=== PATIENT | female | born 1990 ===

== ENCOUNTER 2017-03-04 13:54 | Emergency (ER) | payer OTHER ==
[2017-03-04 13:54] VITALS: BMI 29.2
[2017-03-04 14:10] VITALS: BP 130/72; PULSE 95; RESP 18; TEMP 97; O2SAT 100
--- NOTE | 2017-03-04 14:59 | ED PDOC ---
HPI: Eye Injury/Pain Time Seen by Provider: 03/04/17 14:33 Chief Complaint (Nursing): Eye Problem Chief Complaint (Provider): Right eye pain, redness History Per: Patient History/Exam Limitations: no limitations Onset/Duration Of Symptoms: Days Current Symptoms Are (Timing): Still Present Severity: Moderate Pain Scale Rating Of: 5 Quality: Burning Associated Symptoms: FB Sensation, Other (Watery) Past Medical History Reviewed: Historical Data, Nursing Documentation, Vital Signs Vital Signs: Last Vital Signs Temp 97 F L 03/04/17 14:06 Pulse 95 H 03/04/17 14:06 Resp 18 03/04/17 14:06 BP 130/72 03/04/17 14:06 Pulse Ox 100 03/04/17 14:06 - Medical History PMH: Anxiety Denies: Chronic Kidney Disease - Surgical History Surgical History: No Surg Hx - Family History Family History: States: No Known Family Hx - Living Arrangements Living Arrangements: With Family - Social History Current smoker - smoking cessation education provided: No Alcohol: Occasional Drugs: Denies - Home Medications Home Medications: Ambulatory Orders Medication Instructions Recorded Vit No.128/Iron/FA 1 tab PO DAILY 01/16/16 [ Vitamin] Ibuprofen [Motrin Tab] 800 mg PO TID #0 tab 01/18/16 Gentamicin 0.1% 0.1 / TP BID #1 tube 03/04/17 - Allergies Allergies/Adverse Reactions: Allergies Allergy/AdvReac Type Severity Reaction Status Date / Time promethazine AdvReac DIZZINESS Verified 10/02/15 12:42 Review of Systems ROS Statement: Except As Marked, All Systems Reviewed And Found Negative Constitutional: Positive for: Sweats. Negative for: Fever Eyes: Positive for: Redness Skin: Positive for: Other Physical Exam - Reviewed Nursing Documentation Reviewed: Yes Vital Signs Reviewed: Yes - Physical Exam Appears: Positive for: Well, Non-toxic, No Acute Distress Head Exam: Positive for: ATRAUMATIC, NORMAL INSPECTION, NORMOCEPHALIC Skin: Positive for: Normal Color, Warm, DRY Eye Exam: Positive for: EOMI, PERRL (and symmetrical ), Conjunctival injection, Other (Injection of sclera; (-) abrasions ). Negative for: Normal appearance ENT: Positive for: Normal ENT Inspection Neck: Positive for: Normal, Painless ROM Cardiovascular/Chest: Positive for: Regular Rate, Rhythm Respiratory: Positive for: CNT, Normal Breath Sounds Gastrointestinal/Abdominal: Positive for: Normal Exam, Bowel Sounds, Soft Back: Positive for: Normal Inspection Extremity: Positive for: Normal ROM Neurologic/Psych: Positive for: Alert, Oriented - ECG O2 Sat by Pulse Oximetry: 100 Pulse Ox Interpretation: Normal Disposition - Clinical Impression Clinical Impression: Conjunctivitis - Disposition Referrals: Allie Childress MD [Primary Care Provider] - Disposition: Routine/Home Disposition Time: 15:24 Condition: STABLE Prescriptions: Gentamicin 0.1% 0.1 / TP BID #1 tube Instructions: Conjunctivitis (ED)
== END 2017-03-04 15:35 | disposition home or self-care (01) ==
LOC: H.ER 13:54
DX: H10.9 Unspecified conjunctivitis (principal)

== ENCOUNTER 2018-04-09 18:43 | Emergency (ER) | payer OTHER ==
[2018-04-09 18:44] VITALS: BMI 29.2
[2018-04-09 19:07] VITALS: RESP 16; O2SAT 100
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
[2018-04-09 23:01] VITALS: BP 123/74; PULSE 73; TEMP 98
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
== END 2018-04-09 23:01 | disposition home or self-care (01) ==
LOC: H.ER 18:43
DX: S16.1XXA Strain of muscle, fascia and tendon at neck level, initial encounter (principal); M25.512 Pain in left shoulder; R07.82 Intercostal pain; V43.52XA Car driver injured in collision with other type car in traffic accident, initial encounter; Y92.410 Unspecified street and highway as the place of occurrence of the external cause
CPT/HCPCS: 71101; 72040; 72070; 72100; 73030; 81025; 96372; 99284; J1885

== ENCOUNTER 2018-05-28 14:38 | Emergency (ER) | payer OTHER ==
[2018-05-28 14:39] VITALS: BMI 29.2
[2018-05-28 14:49] VITALS: TEMP 98.2; O2SAT 99
[2018-05-28] MEDS ORDERED: Sodium Chloride 0.9% 1,000 ML IV STA (15:39)
[2018-05-28 16:04] LABS: BASO # 0.1 K/uL (0.0-0.2); BASO % 0.8 % (0.0-2.0); EOS # 0.1 K/uL (0.0-0.7); EOS % 1.3 % (0.0-4.0); LYMPH # 1.8 K/uL (1.0-4.3); LYMPH % 18.2 % (20.0-40.0); MEAN CELL VOLUME 92.7 fl (81.0-99.0); MEAN CORPUSCULAR HEMOGLOBIN 31.7 pg (27.0-31.0); MEAN CORPUSCULAR HGB CONC 34.2 g/dL (33.0-37.0); MEAN PLATELET VOLUME 10.2 fl (7.2-11.7); MONO # 0.7 K/uL (0.0-0.8); MONO % 7.3 % (0.0-10.0); NEUT # 7.3 K/uL (1.8-7.0); NEUT % 72.4 % (50.0-75.0); NRBC % 0.1 % (0.0-0.0); RBC 4.09 Mil/uL (3.80-5.20)
[2018-05-28 16:15] LABS: ALB/GLOB RATIO 1.3 (1.0-2.1); ALT/SGPT 34 U/L (9-52); AST/SGOT 20 U/L (14-36); BLOOD UREA NITROGEN 12 mg/dl (7-17); CALCIUM 9.2 mg/dL (8.4-10.2); GFR NON-AFRICAN AMERICAN > 60
[2018-05-28 16:38] LABS: INR 1.1; PROTHROMBIN TIME 11.7 Seconds (9.8-13.1)
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
--- NOTE | 2018-05-28 17:38 | ED PDOC ---
HPI: Head Injury Chief Complaint (Provider): Head Injury History Per: Patient History/Exam Limitations: no limitations Onset/Duration Of Symptoms: Days (x1) Patient States: Fell Striking Head Additional Complaint(s): 28 year old female presents to the ED for evaluation of a head injury. Patient states that yesterday around 2230 she was standing on top of her toilet when she slipped and fell, striking the left side of her head just behind her ear on a ceramic towel olea. Now, she notes a headache and dizziness. She also reports multiple episodes of non-bloody vomiting since the event. Otherwise denies abdominal pain, loss of consciousness, anticoagulant use, and other head injury. PMD: Ritika Damico <Peña Burleson E - Last Filed: 05/29/18 13:17> <Bryan Chopra - Last Filed: 05/30/18 14:45> Time Seen by Provider: 05/28/18 14:55 Chief Complaint (Nursing): Trauma Past Medical History Reviewed: Historical Data, Nursing Documentation, Vital Signs Vital Signs: Last Vital Signs Temp 98.2 F 05/28/18 14:45 Pulse 81 05/28/18 14:45 Resp 16 05/28/18 14:45 BP 127/81 05/28/18 14:45 Pulse Ox 99 05/28/18 14:45 - Medical History PMH: Anxiety Denies: Chronic Kidney Disease - Surgical History Surgical History: Tonsillectomy - Family History Family History: States: Unknown Family Hx - Social History Current smoker - smoking cessation education provided: No Alcohol: None Drugs: Denies - Immunization History Hx Tetanus Toxoid Vaccination: No <Peña Burleson - Last Filed: 05/29/18 13:17> Vital Signs: Last Vital Signs Temp 98.2 F 05/28/18 14:45 Pulse 85 05/28/18 18:19 Resp 15 05/28/18 18:19 BP 121/68 05/28/18 18:19 Pulse Ox 99 05/29/18 13:19 <Bryan Chopra - Last Filed: 05/30/18 14:45> - Home Medications Home Medications: Ambulatory Orders Medication Instructions Recorded Vit No.128/Iron/FA 1 tab PO DAILY 01/16/16 [ Vitamin] RX: Ibuprofen [Motrin Tab] 800 mg PO TID #0 tab 01/18/16 RX: Gentamicin 0.1% 0.1 / TP BID #1 tube 03/04/17 Cyclobenzaprine [Cyclobenzaprine 10 mg PO BID PRN #14 tab 04/09/18 HCl] RX: Naproxen [Naprosyn] 500 mg PO Q12 PRN #20 tablet 04/09/18 RX: traMADol [Ultram] 50 mg PO Q8 PRN #10 tab 04/09/18 Metoclopramide [Reglan] 10 mg PO TID PRN #15 tab 05/28/18 - Allergies Allergies/Adverse Reactions: Allergies Allergy/AdvReac Type Severity Reaction Status Date / Time promethazine AdvReac DIZZINESS Verified 04/09/18 19:06 Review of Systems ROS Statement: Except As Marked, All Systems Reviewed And Found Negative Constitutional: Positive for: Other (head injury) ENT: Negative for: Other (hearing changes) Gastrointestinal: Positive for: Vomiting. Negative for: Abdominal Pain Neurological: Positive for: Headache, Dizziness. Negative for: Other (loss of consciousness) <Peña Burleson E - Last Filed: 05/29/18 13:17> Physical Exam - Reviewed Nursing Documentation Reviewed: Yes Vital Signs Reviewed: Yes - Physical Exam Appears: Positive for: No Acute Distress Head Exam: Positive for: ATRAUMATIC (but with mild tenderness to left mastoid w ithout swelling), NORMOCEPHALIC (no deformity noted) Skin: Positive for: Normal Color, Warm, Dry Eye Exam: Positive for: Normal appearance ENT: Positive for: Normal ENT Inspection, TM Is/Are (no bilateral hemotympanum) Neck: Positive for: Supple. Negative for: Painless ROM (left sided paracervical muscle tenderness) Cardiovascular/Chest: Positive for: Regular Rate, Rhythm Respiratory: Positive for: Normal Breath Sounds. Negative for: Accessory Muscle Use, Respiratory Distress Gastrointestinal/Abdominal: Positive for: Normal Exam, Soft. Negative for: Tenderness Back: Positive for: Normal Inspection Extremity: Positive for: Normal ROM Neurologic/Psych: Positive for: Alert, Oriented (x3). Negative for: Motor/Sensory Deficits <Peña Burleson E - Last Filed: 05/29/18 13:17> - Laboratory Results Result Diagrams: 05/28/18 15:59 05/28/18 15:59 - ECG O2 Sat by Pulse Oximetry: 99 (RA) Pulse Ox Interpretation: Normal <Peña Burleson - Last Filed: 05/29/18 13:17> - Laboratory Results Result Diagrams: 05/28/18 15:59 05/28/18 15:59 <Bryan Chopra - Last Filed: 05/30/18 14:45> Medical Decision Making Medical Decision Making: Time: 1539 Initial Impression: head injury Initial Plan: --Type and screen --C-spine CT w/o contrast --Head CT w/o contrast --CMP --Urine dip --CBC with differential --PT / PTT --Normal saline IV --Reglan 10mg IVPB On re-evaluation, pt. reports much feeling better. Headache and neck pain have resolved. Repeat neuro exam is non-focal. Abd soft and non-tender. Tolerating PO fluids in ED. Scribe Attestation: Documented by Muna Ontiveros, acting as a scribe for Peña Burleson PA-C. Provider Scribe Attestation: All medical record entries made by the Scribe were at my direction and personally dictated by me. I have reviewed the chart and agree that the record accurately reflects my personal performance of the history, physical exam, medical decision making, and the department course for this patient. I have also personally directed, reviewed, and agree with the discharge instructions and disposition. <Peña Burleson - Last Filed: 05/29/18 13:17> Disposition - Patient ED Disposition Is Patient to be Admitted: No - Disposition Disposition: Routine/Home Disposition Time: 18:00 <Peña Burleson - Last Filed: 05/29/18 13:17> <Bryan Chopra - Last Filed: 05/30/18 14:45> - Clinical Impression Clinical Impression: Head injury - Disposition Referrals: [facility] [Outside] Condition: IMPROVED Additional Instructions: ELIZABETH LOPEZ, thank you for letting us take care of you today. Your provider was Bryan Chopra MD and you were treated for HEAD INJURY, DIZZINESS. The emergency medical care you received today was directed at your acute symptoms. I f you were prescribed any medication, please fill it and take as directed. It may take several days for your symptoms to resolve. Return to the Emergency Department if your symptoms worsen, do not improve, or if you have any other problems. Please contact your doctor or call one of the physicians/clinics you have been referred to that are listed on the Patient Visit Information form that is inclu ded in your discharge packet. Bring any paperwork you were given at discharge with you along with any medications you are taking to your follow up visit. Our treatment cannot replace ongoing medical care by a primary care provider outside of the emergency department. Thank you for allowing the [facility] team to be part of your care today. If you had an X-Ray or CT scan: A Radiologist will review the ED reading if any change in treatment is needed we will contact you. If you had a blood, urine, or wound culture: It will take several days for the results, if any change in treatment is needed we will contact you. If you had an STI test: It will take 48 hours for the results. Please call after 1 week if you have not heard back. Prescriptions: Metoclopramide [Reglan] 10 mg PO TID PRN #15 tab PRN Reason: nausea or headache Instructions: Postconcussion Syndrome (DC) Forms: [employer] (Azeri), [facility] School/Work Excuse Print Language: KITTITIAN Addendum Addendum: 05/30/18 14:45 Reviewed Pa chart and agree. <Bryan Chopra - Last Filed: 05/30/18 14:45>
[2018-05-28 18:20] VITALS: BP 121/68; PULSE 85; RESP 15
== END 2018-05-28 18:20 | disposition home or self-care (01) ==
LOC: H.ER 14:38
DX: S09.90XA Unspecified injury of head, initial encounter (principal); W01.0XXA Fall on same level from slipping, tripping and stumbling without subsequent striking against object, initial encounter; Y92.002 Bathroom of unspecified non-institutional (private) residence as the place of occurrence of the external cause; F41.9 Anxiety disorder, unspecified
CPT/HCPCS: 70450; 72125; 80053; 81025; 85025; 85610; 85730; 86850; 86900; 96374; 99285; J2765; J7030